=== PATIENT | female | born 1990 | race Hispanic/Latino ===

== ENCOUNTER → 2018-04-14 | Outpatient (CLI) | payer OTHER, SELFPAY ==
[~2018-04-14] MED LIST: LABETALOL HCL100 MG PO; MOTRIN800 M1 PO
--- NOTE | 2018-04-14 17:01 | Diagnostic Imaging Report ---
EXAMINATION: Transvaginal ultrasound. CLINICAL INDICATION: Excessive bleeding during menstruation COMPARISON: None DISCUSSION: Transverse and sagittal transvaginal images were obtained of the pelvis obtained. Transvaginal necessary to evaluate the adnexa. The uterus is normal in size measuring 7.8 x 4.5 x 5.8 cm. cm. The endometrial stripe is homogeneous, normal in thickness and measures 0.4 centimeters. The right ovary is not visualized. The left ovary measures 2.7 x 1.5 x 1.5 cm. Follicles present. No free fluid or pelvic masses are seen. IMPRESSION: Normal sonographic appearance of the uterus with normal thickness of the endometrial stripe. Left ovary normal. Right ovary not visualized. Signed by: Dr. Joshua Ortiz M.D. on 04/14/2018 4:58 PM
== END ==
LOC: US 15:46
PROVIDERS: ATTEND Internal Medicine
DX: N39.9 Disorder of urinary system, unspecified (principal)
CPT/HCPCS: 76830